=== PATIENT | male | born 1990 | race Caucasian/White ===

== ENCOUNTER 2016-09-16 22:28 | Emergency (ER) | payer BC ==
[2016-09-16 22:37] VITALS: BP 147/90; PULSE 78; TEMP 97.6; BMI 35.2
--- NOTE | 2016-09-16 23:09 | PDOC ---
[id number] 98 09/16/16 22:34 09/16/16 22:34 09/16/16 22:34 09/16/16 22:34 09/16/16 22:34 Medical Decision Making - Medical Decision Making 09/16/16 23:09 agree with care from OFFSET PRESS ASSISTANT Najma *DC/Admit/Observation/Transfer Diagnosis at time of Disposition: Throat pain in adult - Discharge Dispostion Disposition: HOME Condition at time of disposition: Stable - Prescriptions Prescriptions: Azithromycin 500 mg PO DAILY #3 tablet Aspirin/Acetaminophen/Caffeine [Excedrin Migraine Caplet] 2 each PO TID PRN #20 tablet PRN Reason: Pain - Referrals Referrals: Cleve Zaman MD [Primary Care Provider] - - Patient Instructions Printed Discharge Instructions: DI for Strep Throat, DI for Viral Pharyngitis Additional Instructions: Please take medications as prescribed. Follow up with your primary care doctor if symptoms persist after completion of your medication. As discussed, if you experience severe swelling to the throat (difficulty breathing, speaking, swallowing), fever, persistent vomiting or diarrhea, or any new or worsening symptoms, please return to the ER immediately.
--- NOTE | 2016-09-16 23:28 | PDOC ---
History of Present Illness - General Chief Complaint: Sore Throat Stated Complaint: INFECTION Time Seen by Provider: 09/16/16 22:45 - History of Present Illness Initial Comments: 09/16/16 23:28 CHIEF COMPLAINT: sore throat HISTORY OF PRESENT ILLNESS: 26 yo M with no significant PMH presents to ED with sore throat x 4 days. Patient states the pain began on Wednesday morning and he saw his primary care doctor on Wednesday morning and started taking Augmentin. He denies any fever, nausea, or vomiting but does complain of diarrhea. PAST MEDICAL HISTORY: Denies past medical history FAMILY HISTORY: Denies SOCIAL HISTORY: Current smoker, 1 pack daily. Denies alcohol, illicit drug use. SURGICAL HISTORY: Denies ALLERGIES: No known drug allergies REVIEW OF SYSTEMS General/Constitutional: Denies fever or chills. Denies weakness, weight change. HEENT: Sore thorat. Denies change in vision. Denies ear pain or discharge. Cardiovascular: Denies chest pain or shortness of breath. Respiratory: Denies cough, wheezing, or hemoptysis. Gastrointestinal: Denies nausea, vomiting, diarrhea or constipation. Denies rectal bleeding. Genitourinary: Denies dysuria, frequency, or change in urination. Musculoskeletal: Denies joint or muscle swelling or pain. Denies neck or back pain. Skin and breasts: Denies rash or easy bruising. Neurologic: Denies headache, vertigo, loss of consciousness, or loss of sensation. PHYSICAL EXAM General Appearance: Well-appearing, appropriately dressed. No apparent distress , no intoxication. HEENT: EOMI, PERRLA, normal ENT inspection, normal voice, TMs normal, pharynx normal. No conjunctival pallor. No photophobia, scleral icterus. Neck: Supple. Trachea midline. No tenderness, rigidity, carotid bruit, stridor , lymphadenopathy, or thyromegaly. Respiratory/Chest: Lungs CTAB. No shortness of breath, chest tenderness, respiratory distress, accessory muscle use. No crackles, rales, rhonchi, stridor , wheezing, dullness Cardiovascular: RRR. S1, S2. No JVD, murmur, bradycardia, tachycardia. Vascular Pulses: Dorsalis-Pedis (R): 2+, Dorsalis-Pedis (L): 2+ Gastrointestinal/Abdominal: Normal bowel sounds. Abdomen soft, non-distended. No tenderness or rebound tenderness. No organomegaly, pulsatile mass, guarding , hernia, hepatomegaly, splenomegaly. Lymphatic: No adenopathy, tenderness. Musculoskeletal/Extremities: Normal inspection. FROM of all extremities, normal capillary refill. Pelvis Stable. No CVA tenderness. No tenderness to extremities, pedal edema, swelling, erythema or deformity. Integumentary: Appropriate color, dry, warm. No cyanosis, erythema, jaundice or rash Neurologic: sales engagement manager II-XII intact. Fully oriented, alert. Appropriate mood/affect. Motor strength 5/5. No appreciable EOM palsy, facial droop or sensory deficit. 09/16/16 23:32 Past History - Past Medical History Allergies/Adverse Reactions: Allergies Allergy/AdvReac Type Severity Reaction Status Date / Time No Known Allergies Allergy Verified 09/16/16 22:33 Home Medications: Ambulatory Orders Aspirin/Acetaminophen/Caffeine [Excedrin Migraine Caplet] 2 each PO TID PRN #20 tablet 09/17/16 Azithromycin 500 mg PO DAILY #3 tablet 09/17/16 Asthma: Yes ( A CHILD) Other medical history: denies - Immunization History Immunization Up to Date: No - Psycho/Social/Smoking Cessation Hx Anxiety: No Suicidal Ideation: No Smoking Status: Yes Smoking History: Current every day smoker Have you smoked in the past 12 months: Yes Number of Cigarettes Smoked Daily: 20 Information on smoking cessation initiated: Yes 'Breaking Loose' booklet given: 09/16/16 Hx Alcohol Use: No Drug/Substance Use Hx: No *Physical Exam - Vital Signs Last Vital Signs Temp Pulse Resp BP Pulse Ox 97.6 F 78 18 147/90 98 09/16/16 22:34 09/16/16 22:34 09/16/16 22:34 09/16/16 22:34 09/16/16 22:34 Medical Decision Making - Medical Decision Making 09/16/16 23:58 26 yo M with no significant PMH presents to ED with sore throat x 4 days, no improvement with Augmentin. -rapid strep swab *DC/Admit/Observation/Transfer Diagnosis at time of Disposition: Throat pain in adult - Discharge Dispostion Disposition: HOME Condition at time of disposition: Stable Admit: No - Prescriptions Prescriptions: Azithromycin 500 mg PO DAILY #3 tablet Aspirin/Acetaminophen/Caffeine [Excedrin Migraine Caplet] 2 each PO TID PRN #20 tablet PRN Reason: Pain - Referrals Referrals: Cleve Zaman MD [Primary Care Provider] - - Patient Instructions Printed Discharge Instructions: DI for Strep Throat, DI for Viral Pharyngitis Additional Instructions: Please take medications as prescribed. Follow up with your primary care doctor if symptoms persist after completion of your medication. As discussed, if you experience severe swelling to the throat (difficulty breathing, speaking, swallowing), fever, persistent vomiting or diarrhea, or any new or worsening symptoms, please return to the ER immediately.
== END 2016-09-17 00:50 | disposition home or self-care (01) ==
LOC: JER 22:28
DX: J02.9 Acute pharyngitis, unspecified (principal); B97.89 Other viral agents as the cause of diseases classified elsewhere
CPT/HCPCS: 87070; 87430; 99281-25

== ENCOUNTER → 2016-10-20 | Emergency (ER) | payer BC ==
[~2016-10-20] MED LIST: AMOX TR/POT CLAV 875MG/125MG TABLETS (FP) PO ONE; TETANUS AND DIPHTHERIA TOXOID 0.5 ML DISP.SYRIN IM ONE
[2016-10-20 19:13] VITALS: BP 95/70; PULSE 90; TEMP 98.3; BMI 37.3
--- NOTE | 2016-10-20 21:10 | PDOC ---
History of Present Illness <Jesica Basilio - Last Filed: 10/20/16 21:11> - History of Present Illness Initial Comments: 10/20/16 21:19 Patient is a 26 year old year old male with no significant past medical history who presents to the ED with a dog bite since tonight. Patient states that his friend's dog has been more aggressive than usual and today bit his right forearm. As per friend, the dog is up to date on all of his shots including Rabies shot. He reports pain around the two wounds from the bite but denies any changes in sensation or muscle weakness. He denies fever, chills, nausea, vomiting, diarrhea or constipation. <Sindi Askew - Last Filed: 10/20/16 21:33> - General Chief Complaint: Bite Stated Complaint: DOGBITE Time Seen by Provider: 10/20/16 19:36 Past History - Past Medical History Asthma: Yes ( A CHILD) - Immunization History Immunization Up to Date: No - Psycho/Social/Smoking Cessation Hx Anxiety: No Suicidal Ideation: No Smoking Status: Yes Smoking History: Never smoked Have you smoked in the past 12 months: Yes Number of Cigarettes Smoked Daily: 20 'Breaking Loose' booklet given: 09/16/16 Hx Alcohol Use: No Drug/Substance Use Hx: No <Jesica Basilio - Last Filed: 10/20/16 21:11> <Sindi Askew - Last Filed: 10/20/16 21:33> - Past Medical History Allergies/Adverse Reactions: Allergies Allergy/AdvReac Type Severity Reaction Status Date / Time No Known Allergies Allergy Verified 10/20/16 19:14 Home Medications: Ambulatory Orders Aspirin/Acetaminophen/Caffeine [Excedrin Migraine Caplet] 2 each PO TID PRN #20 tablet 09/17/16 Azithromycin 500 mg PO DAILY #3 tablet 09/17/16 Amox-Tr/K Cl [Augmentin - 875Mg Tablet] 1 tab PO BID #20 tablet 10/20/16 Bacitracin - [Bacitracin Topical Ointment -] 1 applic TP BID #1 tube 10/20/16 Review of Systems - Review of Systems Able to Perform ROS?: Yes Comments:: 10/20/16 21:19 CONSTITUTIONAL: Absent: fever, chills, diaphoresis, generalized weakness, malaise, loss of appetite HEENT: Absent: rhinorrhea, nasal congestion, throat pain, throat swelling, difficulty swallowing, mouth swelling, ear pain, eye pain, visual Changes CARDIOVASCULAR: Absent: chest pain, syncope, palpitations, irregular heart rate, lightheadedness , peripheral edema RESPIRATORY: Absent: cough, shortness of breath, dyspnea with exertion, orthopnea, wheezing, stridor, hemoptysis GASTROINTESTINAL: Absent: abdominal pain, abdominal distension, nausea, vomiting, diarrhea, constipation, melena, hematochezia GENITOURINARY: Absent: dysuria, frequency, urgency, hesitancy, hematuria, flank pain, genital pain MUSCULOSKELETAL: Present: (+) right forearm pain Absent: myalgia, arthralgia, joint swelling SKIN: Present: (+) dog bite on right forearm Absent: rash, itching, pallor HEMATOLOGIC/IMMUNOLOGIC: Absent: easy bleeding, easy bruising, lymphadenopathy, frequent infections ENDOCRINE: Absent: unexplained weight gain, unexplained weight loss, heat intolerance, cold intolerance NEUROLOGIC: Absent: headache, focal weakness or paresthesias, dizziness, unsteady gait, seizure, mental status changes, bladder or bowel incontinence PSYCHIATRIC: Absent: anxiety, depression, suicidal or homicidal ideation, hallucinations. <Sindi Askew - Last Filed: 10/20/16 21:33> *Physical Exam - Vital Signs Last Vital Signs Temp Pulse Resp BP Pulse Ox 98.3 F 90 20 95/70 98 10/20/16 19:10 10/20/16 19:10 10/20/16 19:10 10/20/16 19:10 10/20/16 19:10 <Jesica Basilio - Last Filed: 10/20/16 21:11> - Vital Signs Last Vital Signs Temp Pulse Resp BP Pulse Ox 98.3 F 90 20 95/70 98 10/20/16 19:10 10/20/16 19:10 10/20/16 19:10 10/20/16 19:10 10/20/16 19:10 - Physical Exam Comments: 10/20/16 21:20 GENERAL: Well developed, well nourished. Awake and alert. No acute distress. HEENT: Normocephalic, atraumatic. PERRLA, EOMI. No conjunctival pallor. Sclera are non- icteric. Moist mucous membranes. Oropharynx is clear. NECK: Supple. Full ROM. No JVD. Carotid pulses 2+ and symmetric, without bruits. No thyromegaly. No lymphadenopathy. CARDIOVASCULAR: Regular rate and rhythm. No murmurs, rubs, or gallops. Distal pulses are 2+ and symmetric. PULMONARY: No evidence of respiratory distress. Lungs clear to auscultation bilaterally. No wheezing, rales or rhonchi. ABDOMINAL: Soft. Non-tender. Non-distended. No rebound or guarding. No organomegaly. Normoactive bowel sounds. MUSCULOSKELETAL Normal range of motion at all joints. No bony deformities or tenderness. No CVA tenderness. EXTREMITIES: (+) 2 lacerations on right forearm, 3 cm each. dorsal laceration is superficial , ventral laceration is deeper than the dorsal laceration, but not full thickness (steri strip to close). No cyanosis. No clubbing. No edema. No calf tenderness. SKIN: (+) lacerations on forearm as described above. Warm and dry. Normal capillary refill. No rashes. No jaundice. NEUROLOGICAL: Alert, awake, appropriate. Cranial nerves 2-12 intact. No deficits to light touch and temperature in face, upper extremities and lower extremities. No motor deficits in the in face, upper extremities and lower extremities. Normoreflexic in the upper and lower extremities. Normal speech. Toes are down-going bilaterally. Gait is normal without ataxia. PSYCHIATRIC: Cooperative. Good eye contact. Appropriate mood and affect. <Sindi Askew - Last Filed: 10/20/16 21:33> *DC/Admit/Observation/Transfer <Jesica Basilio - Last Filed: 10/20/16 21:11> - Attestations Scribe Attestion: 10/20/16 21:22 Documentation prepared by Sindi Askew, acting as medical record specialist for Jesica Basilio MD <Sindi Askew - Last Filed: 10/20/16 21:33> Diagnosis at time of Disposition: Dog bite of extremity - Discharge Dispostion Disposition: HOME Condition at time of disposition: Stable - Prescriptions Prescriptions: Amox-Tr/K Cl [Augmentin - 875Mg Tablet] 1 tab PO BID #20 tablet Bacitracin - [Bacitracin Topical Ointment -] 1 applic TP BID #1 tube - Referrals Referrals: Cleve Zaman MD [Primary Care Provider] - - Patient Instructions Printed Discharge Instructions: DI for Animal Bites Additional Instructions: you must tile picker your antibiotics prescription at your pharmacy starting tomorrow you can place bacitracin on the wound twice daily keep area clean return for any signs of infection or fever
== END | disposition home or self-care (01) ==
LOC: JER 19:08
PROC: 0HQDXZZ Repair Right Lower Arm Skin, External Approach (ICD-10-PCS; principal; 2016-10-20)
DX: S51.851A Open bite of right forearm, initial encounter (principal); W54.0XXA Bitten by dog, initial encounter; Y93.89 Activity, other specified; Y92.038 Other place in apartment as the place of occurrence of the external cause
CPT/HCPCS: 99281-25

== ENCOUNTER 2017-01-18 22:10 | Emergency (ER) | payer BC ==
[2017-01-18 22:50] VITALS: BP 130/80; PULSE 88; TEMP 98.2; BMI 38.0
--- NOTE | 2017-01-18 23:02 | PDOC ---
History of Present Illness - General Chief Complaint: Chest Pain Stated Complaint: CHEST PAIN Time Seen by Provider: 01/18/17 22:13 History Source: Patient Exam Limitations: No Limitations - History of Present Illness Initial Comments: 01/18/17 23:51 This is a 26-year-old male who comes in complaining of chest wall pain. Patient denies any recent injury or strenuous physical workup. However patient says he does work out and left weights. Patient did not take anything for the pain. Patient denies any associated nausea, diaphoresis, radiation or shortness of breath. Patient otherwise has not been ill.. He denies any fevers or chills cough or congestion. Patient smokes and takes occasional alcohol over the denies any use of illegal or street drugs. PAST MEDICAL HISTORY: no significant history PAST SURGICAL HISTORY: no significant history FAMILY HISTORY: no pertinant history SOCIAL HISTORY: Pt lives with family and is employed. MEDICATIONS: reviewed ALLERGIES: As per nursing notes Review of Systems General: No fevers or chills, no weakness, no weight loss HEENT: No change in vision. No sore throat,. No ear pain CardioVascular: + chest pain no shortness of breath Respiratory:No cough, or wheezing. Gastrointestinal: no nausea, vomitting, diarrhea or constipation, No rectal bleeding Genitourinary: No dysuria, hematuria, or frequency Musculoskeletal: No joint or muscle pain or swelling Neurologic: No headache, vertigo, dizziness or loss of consciousness Psychiatric: nor depression Skin: No rashes or easy bruising Endocrine: no increased thirst or abnormal weight change Allergic: no skin or latex allergy All other systems reviewed and normal Exam: General: Well-nourished well-developed individual, no acute distress HEENT: Throat: Normal, tonsils normal, no erythema or exudate Neck: Supple, no meningeal signs, no lymphadenopathy Eyes::Pupils equal reactive and round, extraocular motion intact Chest: Chest pain is reproduced on palpation and with deep respiration. Cardiac: S1-S2 normal, regular rate and rhythm, no murmurs rubs or gallops Respiratory: Lungs clear to auscultation bilateral Abdomen: Soft, nondistended, normal bowel sounds, nontender to palpation diffusely Extremities: Warm, dry, no cyanosis, clubbing, or edema Skin: No rashes Neuro: Alert and oriented x3, nonfocal exam, grossly intact, normal gait Psych: Normal mood and affect EKG shows normal sinus rhythm at a rate of the 80, normal intervals, no acute ST -T wave changes normal EKG. Assessment and plan: This is a 26-year-old male who comes in complaining of chest wall pain. Patient took aspirin for the pain with improvement of his symptoms. Patient given ibuprofen here in the emergency room and discharged home patient will follow-up with his primary care doctor as needed. Past History - Past Medical History Allergies/Adverse Reactions: Allergies Allergy/AdvReac Type Severity Reaction Status Date / Time No Known Allergies Allergy Verified 01/18/17 22:46 Home Medications: Ambulatory Orders NK [No Known Home Medication] 01/18/17 Asthma: Yes ( A CHILD) - Immunization History Immunization Up to Date: No - Psycho/Social/Smoking Cessation Hx Anxiety: No Suicidal Ideation: No Smoking Status: Yes Smoking History: Never smoked Have you smoked in the past 12 months: Yes Number of Cigarettes Smoked Daily: 20 Information on smoking cessation initiated: No 'Breaking Loose' booklet given: 09/16/16 Hx Alcohol Use: Yes (WEEKENDS) Drug/Substance Use Hx: No Substance Use Type: None *Physical Exam - Vital Signs Last Vital Signs Temp Pulse Resp BP Pulse Ox 98.2 F 88 16 130/80 99 01/18/17 22:47 01/18/17 22:47 01/18/17 22:47 01/18/17 22:47 01/18/17 22:47 ED Treatment Course - Medications Given in the ED: ED Medications Discontinued Medications Generic Name Dose Route Start Last Admin Trade Name Radha PRN Reason Stop Dose Admin Ibuprofen 600 mg 01/18/17 23:14 01/18/17 23:14 Motrin - PO 01/18/17 23:15 600 mg NOW ONE Administration *DC/Admit/Observation/Transfer Diagnosis at time of Disposition: Chest wall pain - Discharge Dispostion Disposition: HOME Condition at time of disposition: Stable Admit: No - Referrals Referrals: Cleve Zaman MD [Primary Care Provider] - - Patient Instructions Additional Instructions: Take Tylenol or Aleve for the pain. If not better in 3-4 days follow-up with your primary care doctor. Return to the emergency department immediately with ANY new, persistent or worsening symptoms. Continue any medications as previously prescribed by your physician. You should follow up with your primary doctor as soon as possible regarding today's emergency department visit. . Please make sure your doctor reviews the results of your emergency evaluation. Thank you for coming to the Emergency Department today for your care. It was a pleasure to see you today. Please note that your evaluation is INCOMPLETE until you follow-up with your doctor.
[2017-01-18] MEDS ORDERED: IBUPROFEN 600 MG TABLET (FP) PO ONE ×2 (23:14→23:15)
--- NOTE | 2017-01-19 11:42 | EKG ---
Test Reason : Blood Pressure : / mmHG Vent. Rate : 080 BPM Atrial Rate : 080 BPM P-R Int : 144 ms QRS Dur : 086 ms QT Int : 388 ms P-R-T Axes : 071 069 041 degrees QTc Int : 447 ms NORMAL SINUS RHYTHM NORMAL ECG WHEN COMPARED WITH ECG OF 20-JUL-2016 15:36, NO SIGNIFICANT CHANGE WAS FOUND Confirmed by HARDIK SCHNEIDER MD ([id number]) on 01/19/2017 11:41:58 AM Referred By: STEPAN Confirmed By:HARDIK SCHNEIDER MD
== END 2017-01-18 23:16 | disposition home or self-care (01) ==
LOC: FER 22:10
DX: R07.89 Other chest pain (principal); F17.210 Nicotine dependence, cigarettes, uncomplicated
CPT/HCPCS: 93005; 93010; 99281-25

== ENCOUNTER 2019-04-11 06:39 | Emergency (ER) | payer BC, OTHER ==
[2019-04-11 06:54] VITALS: BMI 25.7
[2019-04-11] MEDS ORDERED: SODIUM CHLORIDE 1,000 ML IV STA (07:19)
--- NOTE | 2019-04-11 07:43 | PDOC ---
History of Present Illness - General Chief Complaint: Chest Pain Stated Complaint: CHEST PAIN Time Seen by Provider: 04/11/19 07:27 History Source: Patient Exam Limitations: No Limitations - History of Present Illness Initial Comments: 04/11/19 07:39 28 yo M with no past medical history presents to the emergency department with chest pressure, left ear pain, and throat pain beginning at 6am. Per the patient , he denies previous sick contacts. Denies previous hx of cardiac disease but endorses hx of anxiety. States the chest pressure was substernal, non radiating , onset at rest, and dissipation on its own without medicinal intervention. The patient also states he is dehydrated. Denies SOB. Denies the following: fever, chills, abdominal pain, nausea, vomiting, diarrhea, hematochezia, leg pain/ swelling, headache, and lightheadedness. Shx: None Meds: None Allergies: NKDA Social: Uses e-vaping. Denies alcohol. Endorses marijuana. Past History - Past Medical History Allergies/Adverse Reactions: Allergies Allergy/AdvReac Type Severity Reaction Status Date / Time No Known Allergies Allergy Verified 04/11/19 06:47 Home Medications: Ambulatory Orders NK [No Known Home Medication] 01/18/17 Asthma: Yes ( A CHILD) COPD: No - Immunization History Immunization Up to Date: No - Suicide/Smoking/Psychosocial Hx Smoking Status: Yes Smoking History: Current some day smoker Have you smoked in the past 12 months: Yes Number of Cigarettes Smoked Daily: 20 Information on smoking cessation initiated: No 'Breaking Loose' booklet given: 09/16/16 Hx Alcohol Use: No Drug/Substance Use Hx: No Substance Use Type: None Review of Systems - Review of Systems Able to Perform ROS?: Yes Is the patient limited Hebrew proficient: No Constitutional: No: Chills, Diaphoresis, Fever, Weakness HEENTM: Yes: Ear Pain (left ear), Throat Pain. No: Eye Pain, Nose Pain, Mouth Pain Respiratory: No: Cough, Shortness of Breath, Hemoptysis Cardiac (ROS): Yes: Chest Pain. No: Lightheadedness, Palpitations, Syncope ABD/GI: No: Constipated, Diarrhea, Nausea, Rectal Bleeding, Vomiting, Tarry Stools : No: Burning, Dysuria, Hematuria, Incontinence Musculoskeletal: No: Back Pain, Joint Pain, Neck Pain Integumentary: No: Bruising, Erythema, Rash Neurological: No: Headache, Numbness, Tingling, Tremors Psychiatric: No: Change in Appetite Endocrine: No: Unexplained Weight Gain Hematologic/Lymphatic: No: Anemia *Physical Exam - Vital Signs Last Vital Signs Temp Pulse Resp BP Pulse Ox 97.9 F 118 H 18 137/100 100 04/11/19 06:47 04/11/19 06:47 04/11/19 06:47 04/11/19 06:47 04/11/19 06:47 - Physical Exam General Appearance: Yes: Nourished, Appropriately Dressed. No: Apparent Distress, Intoxicated HEENT: positive: EOMI, DARINEL, Normal ENT Inspection, Normal Voice, Symmetrical, TMs Normal, Other (no uvula deviation). negative: Pharynx Normal (pharynx erythema. erythema on tonsils with exudate bilaterally), Muffled/Hoarse voice Neck: positive: Trachea midline, Supple. negative: Tender, Lymphadenopathy (R) , Lymphadenopathy (L), Tender lateral, Tender midline Respiratory/Chest: positive: Lungs Clear, Normal Breath Sounds. negative: Chest Tender, Respiratory Distress, Accessory Muscle Use, Stridor, Wheezing, Hyperresonant Cardiovascular: positive: Regular Rhythm, Regular Rate, S1, S2. negative: Systolic Murmur Gastrointestinal/Abdominal: positive: Normal Bowel Sounds, Flat, Soft. negative : Tender, Distended, Guarding, Rebound Lymphatic: negative: Adenopathy Musculoskeletal: positive: Normal Inspection. negative: CVA Tenderness, Vertebral Tenderness Extremity: positive: Normal Capillary Refill, Normal Inspection, Normal Range of Motion. negative: Tender Integumentary: positive: Normal Color, Dry, Warm. negative: Diaphoresis, Swelling, Ecchymosis Neurologic: positive: cycle analyst II-XII NML intact, Fully Oriented, Alert, Normal Mood/ Affect, Normal Response, Motor Strength 5/5. negative: Facial Droop, Numbness, Sensory Deficit Heart Score/ECG Review - History History: Slightly suspicious - Electrocardiogram EKG: Normal - Age Age: </= 45 - Risk Factors Risk Factors Heart Score: Yes Smoking History Based on the list above the patient has:: 1-2 risk factors - Troponin Troponin: </= normal limit - Score Heart Score - Total: 1 ED Treatment Course - LABORATORY CBC & Chemistry Diagram: 04/11/19 08:16 09/17/19 08:16 Medical Decision Making - Medical Decision Making 04/11/19 10:06 28 yo M with no past medical history presents to the emergency department with chest pressure, left ear pain, and throat pain beginning at 6am. Initial vitals: Initial Vital Signs Temp Pulse Resp BP Pulse Ox 97.9 F 118 H 18 137/100 100 04/11/19 06:47 04/11/19 06:47 04/11/19 06:47 04/11/19 06:47 04/11/19 06:47 Work up: acs rule out. patient is low suspicion for acs given no usage of stimulants such as cocaine and meth, no cardiac hx, no radiation of pain, denies diaphoresis, and no associative SOB. patient had no recent travels, no immobilization, no carcinoma hx, no usage of hormones. patient unlikely to have PE. Patient endorses feeling more anxious than usual. Laboratory Tests 04/11/19 04/11/19 04/11/19 07:15 08:16 08:16 WBC 7.3 RBC 4.64 Hgb 13.7 Hct 41.0 D MCV 88.4 MCH 29.6 MCHC 33.5 RDW 14.2 Plt Count 204 D MPV 8.0 Absolute Neuts (auto) 5.5 Neutrophils % 74.9 Lymphocytes % 14.8 Monocytes % 8.0 Eosinophils % 1.7 Basophils % 0.6 Nucleated RBC % 0 Sodium Potassium Chloride Carbon Dioxide Anion Gap BUN Creatinine Est GFR (CKD-EPI)AfAm Est GFR (CKD-EPI)NonAf Random Glucose Calcium Total Bilirubin AST ALT Alkaline Phosphatase Creatine Kinase 1578 H Creatine Kinase Index 0.3 CK-MB (CK-2) 5.2 H Troponin I < 0.02 B-Natriuretic Peptide 63.7 Total Protein Albumin Group A Strep Rapid Negative 04/11/19 08:16 WBC RBC Hgb Hct MCV MCH MCHC RDW Plt Count MPV Absolute Neuts (auto) Neutrophils % Lymphocytes % Monocytes % Eosinophils % Basophils % Nucleated RBC % Sodium 140 Potassium 4.1 Chloride 105 Carbon Dioxide 29 Anion Gap 6 L BUN 23.1 H Creatinine 1.1 Est GFR (CKD-EPI)AfAm 105.32 Est GFR (CKD-EPI)NonAf 90.87 Random Glucose 97 Calcium 8.8 Total Bilirubin 0.6 AST 58 H ALT 45 Alkaline Phosphatase 45 Creatine Kinase Creatine Kinase Index CK-MB (CK-2) Troponin I B-Natriuretic Peptide Total Protein 6.4 Albumin 3.8 Group A Strep Rapid EKG shows ventricular rate 85 bpm, OH 144 ms, QRS is 78 ms. NSR. No TWI. No JAIME or ST depressions. Strep negative. Trop negative. CK is 1500s. Patient on reassessment stated he worked out at the gym with weights for 3 days after a 2 month hiatus from the gym. Feels better. Unlikely to be acs. Patient does not have an SONDRA secondary to elevated CK. Patient to be discharged. *DC/Admit/Observation/Transfer Diagnosis at time of Disposition: Chest pain - Discharge Dispostion Disposition: HOME Decision to Admit order: No - Referrals Referrals: Cleve Zaman MD [Primary Care Provider] - - Patient Instructions Printed Discharge Instructions: DI for Atypical Chest Pain, DI for Chest Pain Additional Instructions: You were seen in the emergency department for your chest pain. Your labs were within normal limits, your xray was within normal limits, and your EKG does not show signs of cardiac injury or arrhythmia. Please follow up with your primary medical doctor within 1 week after discharge. Please return to the emergency if you have worsening symptoms or new concerning symptoms such as shortness of breath, migrating pain, and uncontrollable nausea and vomiting. - Post Discharge Activity Forms/Work/School Notes: Back to Work
[2019-04-11] MEDS ORDERED: ACETAMINOPHEN 1000 MG/100 ML VIAL (NON FORMULARY) IVPB ONE (08:13)
[2019-04-11] MEDS ORDERED: ACETAMINOPHEN INJECTION 100 ML IVPB ONE (08:22)
[2019-04-11 08:27] LABS: BASO % 0.6 % (0-2.0); EOS % 1.7 % (0-4.5); HEMOGLOBIN 13.7 GM/dL (11.7-16.9); LYMPH % 14.8 % (8-40); MCH 29.6 pg (25.7-33.7); MCHC 33.5 g/dl (32.0-35.9); MEAN CELL VOLUME 88.4 fl (80-96); NEUT % 74.9 % (42.8-82.8); PLATELET COUNT 204 K/MM3 (134-434); RBC 4.64 M/mm3 (4.00-5.60); RDW 14.2 % (11.9-15.9); WHITE BLOOD COUNT 7.3 K/mm3 (4.0-10.0)
[2019-04-11 08:46] LABS: ALBUMIN 3.8 g/dl (3.4-5.0); BILIRUBIN,TOTAL 0.6 mg/dL (0.2-1); BLOOD UREA NITROGEN 23.1 mg/dL (7-18); CALCIUM 8.8 mg/dL (8.5-10.1); CREATININE 1.1 mg/dL (0.55-1.3); POTASSIUM 4.1 mmol/L (3.5-5.1); TOT PROT 6.4 g/dl (6.4-8.2)
[2019-04-11 09:38] LABS: N-TERMINAL BNP 63.7 pg/ml (5-125)
[2019-04-11 10:38] VITALS: BP 116/65; PULSE 80; TEMP 98.1
--- NOTE | 2019-04-11 10:44 | EKG ---
Test Reason : Blood Pressure : / mmHG Vent. Rate : 085 BPM Atrial Rate : 085 BPM P-R Int : 144 ms QRS Dur : 078 ms QT Int : 366 ms P-R-T Axes : 077 074 057 degrees QTc Int : 435 ms POOR DATA QUALITY, INTERPRETATION MAY BE ADVERSELY AFFECTED NORMAL SINUS RHYTHM SEPTAL INFARCT , AGE UNDETERMINED ABNORMAL ECG WHEN COMPARED WITH ECG OF 08-APR-2017 15:57, NO SIGNIFICANT CHANGE WAS FOUND Confirmed by MD Danna, Kyrie ([id number]) on 04/11/2019 10:43:59 AM Referred By: Confirmed By:Kyrie Clya MD
--- NOTE | 2019-04-11 17:22 | PDOC ---
Documentation entered by Dorian Brantley SCRIBE, acting as scribe for Tc Smith MD. Tc Smith MD: This documentation has been prepared by the Fercho araujo Renju, SCRIBE, under my direction and personally reviewed by me in its entirety. I confirm that the documentation accurately reflects all work, treatment, procedures, and medical decision making performed by me. Attending Attestation - Resident Resident Name: Harley Ohara - ED Attending Attestation I have performed the following: I have examined & evaluated the patient, The case was reviewed & discussed with the resident, I agree w/resident's findings & plan, Exceptions are as noted - HPI HPI: 04/11/19 12:39 The patient is a 28 year old male with no past medical history who presents to the emergency department for evaluation of substernal chest pressure onset at rest, at 6am. Denies history of cardiac disease, shortness of breath, headache, dizziness, fevers, chills, nausea, vomiting, diarrhea, hematochezia. - Physicial Exam PE: 04/11/19 12:42 ROS: A complete review of 10 out of 10 review of systems is taken and is negative apart from what is previously mentioned below and in the HPI. Vitals: Triage Vital signs reviewed General Appearance: no acute distress, well nourished well developed, Head: Atraumatic, Eyes: Pupils equal reactive round, extraocular movement intact Neck: Supple; Chest Wall: Nontender Cardiac: Regular rate and rhythm, no murmurs, no rubs, no gallops, Lungs: Clear to auscultation bilaterally, good air movement bilaterally, Abdomen: Soft, non distended, normal bowel sounds, non tender to palpation Extremities: Full range of motion to all extremities, no cyanosis, clubbing, or edema Skin: Warm and dry, no rashes or lesions, no rash, no petechiae Neuro: Strength intact to all extremities, Sensation intact to all extremities, gait normal Psych: normal mood, normal affect - Medical Decision Making 04/11/19 17:55 28 y/o with hx of Tobacco use and drug use, with Viral URI sx and CP Anxious on exam. Chart review preformed. Multiple visits for same Heart score 1, trop neg, non ischemic EKG Pt. stable for outpatient follow up Findings the need for follow up and strict return instructions d/w patient Heart Score/ECG Review - History History: Slightly suspicious - Electrocardiogram EKG: Normal - Age Age: </= 45 - Risk Factors Risk Factors Heart Score: Yes Smoking History Based on the list above the patient has:: 1-2 risk factors - Troponin Troponin: </= normal limit - Score Heart Score - Total: 1 - ECG Intrepretation Rhythm: Regular Rhythm - [place]: Normal - ECG Impressions Normal ECG: Yes Non-specific ST Elevation: No Ischemic Changes: No
== END 2019-04-11 10:38 | disposition home or self-care (01) ==
LOC: JER 06:39
PROC: 3E0337Z Introduction of Electrolytic and Water Balance Substance into Peripheral Vein, Percutaneous Approach (ICD-10-PCS; principal; 2019-04-11)
PROC: 3E033NZ Introduction of Analgesics, Hypnotics, Sedatives into Peripheral Vein, Percutaneous Approach (ICD-10-PCS; 2019-04-11)
DX: R07.9 Chest pain, unspecified (principal)
CPT/HCPCS: 36415; 71046-TC-FY; 80053; 82550; 82553; 83880; 84484; 85025; 87070; 87077; 87880; 93005; 93010; 99283-25; J0131; J7030

== ENCOUNTER 2022-04-13 11:14 | Emergency (ER) | payer SELFPAY ==
[2022-04-13 11:36] VITALS: BP 95/54; PULSE 54; RESP 17; TEMP 97.5; BMI 25.0
== END 2022-04-13 12:39 | disposition left against medical advice (07) ==
LOC: JER 11:14
DX: R10.9 Unspecified abdominal pain (principal)
CPT/HCPCS: 99281-25